=== PATIENT | female | born 1975 | race Caucasian/White ===

== ENCOUNTER 2019-02-25 21:33 | Observation (INO) | payer MEDICARE ==
--- NOTE | 2019-02-25 22:03 | RAD ---
Portable frontal chest radiograph: 02/25/2019 COMPARISON: 03/31/2016 HISTORY: Chest pain FINDINGS: Lungs are clear. Heart and mediastinal contours appear within normal limits. Stable left-si ded Port-A-Cath. IMPRESSION: No acute findings.
[2019-02-25 22:04] LABS: #Basophils 0.1 thou/uL (0.0-0.2); #Eosinphils 0.3 thou/uL (0.0-0.7); #Lymphocytes 4.3 thou/uL (1.20-3.40); #Monocytes 0.9 thou/uL (0.11-0.59); #Neutrophils 8.4 thou/uL (1.40-6.50); %Eosinophils 2.2 % (0.0-10.0); %Lymphocytes 30.7 % (21.0-51.0); %Monocytes 6.3 % (0.0-10.0); %Neutrophils 59.8 % (42.0-75.0); Hemoglobin 12.9 g/dL (12.0-16.0); Mean Corpuscular HGB CONC 34.8 g/dL (32.0-36.0); Platelet Count 330 thou/uL (130-400); RBC Distribution Width 14.2 % (11.5-14.5); Red Blood Cell (RBC) Count 4.04 mill/uL (4.20-5.40)
[2019-02-25 22:17] LABS: ALT (SGPT) 50 U/L (8-55); AST (SGOT) 33 U/L (5-34); Alkaline Phosphatase 124 U/L (40-150); Anion Gap 20 mmol/L (10-20); BUN (Urea Nitrogen) 30 mg/dL (7.0-18.7); Bilirubin, Total 0.4 mg/dL (0.2-1.2); Calc. Creatinine Clearance 0 mL/min (70-130); Calcium 10.5 mg/dL (7.8-10.44); Carbon Dioxide 23 mmol/L (22-29); Chloride 101 mmol/L (98-107); Estimated GFR-MDRD 29; Globulin 3.7 g/dL (2.4-3.5); Glucose 110 mg/dL (70-105); Lipase 40 U/L (8-78); Potassium 3.7 mmol/L (3.5-5.1); Protein, Total 8.7 g/dL (6.0-8.3); Sodium 140 mmol/L (136-145)
[2019-02-26] MEDS ORDERED: Aspirin Chewable 81 MG TAB ONE (00:10)
[2019-02-26] MEDS ORDERED: Ondansetron PF 4 MG/2 ML Vial ONE ×2 (00:10→03:38)
[2019-02-26] MEDS ORDERED: Enoxaparin Sodium 30 MG/0.3 ML SYRINGE ONE (00:15)
[2019-02-26] MEDS ORDERED: Enoxaparin Sodium 80 MG/0.8 ML SYRINGE ONE (00:15)
[2019-02-26 01:20] LABS: Troponin I Less than 0.010 ng/mL (< 0.028)
[2019-02-26] MEDS ORDERED: Ondansetron PF 4 MG/2 ML Vial IVP PRN ×2 (03:46→08:22)
[2019-02-26] MEDS ORDERED: Acetaminophen 325 MG TAB PO PRN (03:46)
[2019-02-26] MEDS ORDERED: Ondansetron ODT 4 MG TAB SL PRN (03:46)
[2019-02-26 04:38] LABS: Troponin I Less than 0.010 ng/mL (< 0.028)
--- NOTE | 2019-02-26 07:26 | ULT ---
BILATERAL LOWER EXTREMITY DOPPLER VENOUS ULTRASOUND: Date: 02/26/19 INDICATION: Elevated D-Dimer and concern for deep venous thrombosis. TECHNIQUE: Hernández scale, color Doppler, and vascular duplex with spectral analysis was performed of the deep venou s structures of the bilateral lower extremities. The common femoral vein, superficial femoral vein, p roximal greater saphenous vein, proximal greater profunda vein, popliteal, and posterior tibial veins were assessed. FINDINGS: Normal compression, flow, and augmentation was seen within the deep venous structures of the bilatera l lower extremities. IMPRESSION: No evidence of deep venous thrombosis within the bilateral lower extremities. POS: BH
[2019-02-26] MEDS ORDERED: HYDROcodone/Acetaminophen 10/325 mg Tablet PO PRN (08:22)
[2019-02-26] MEDS ORDERED: Famotidine 20 MG TAB PO SCH (09:00)
[2019-02-26] MEDS ORDERED: Famotidine 20 MG TAB ONE (09:22)
[2019-02-26] MEDS ORDERED: HYDROcodone/Acetaminophen 10/325 mg Tablet ONE (09:22)
[2019-02-26] MEDS: Famotidine 20 MG TAB PO SCH (09:25)
--- NOTE | 2019-02-26 10:22 | HP ---
CHIEF COMPLAINT: Chest pain, diaphoresis, nausea, and vomiting. HISTORY OF PRESENT ILLNESS: The patient is a pleasant 43-year-old female with somewhat complicated past medical history which includes IgG deficiency, chronic kidney disease stage 3, followed by Dr. Strong at [facility] with numerous recent admissions for acute renal insufficiency at [facility], history of SVT, grade 2 diastolic dysfunction, and incomplete pelvic reconstruction surgery in August 2018 to repair left ureter, who presented to the hospital with complaints of chest pain and diaphoresis. Initially, about 5 days ago, both the patient and her came down what they thought was food poisoning, and the symptoms included vomiting and diarrhea. Her quickly recovered, but the patient continued to feel somewhat poorly. Yesterday morning when she woke up, she felt as if she was back in SVT, and her pulse was 166 by her manual check. She did take 1 of her diltiazem pills, which she uses p.r.n. She did have some vomiting that morning. She did present to [facility] for further treatment, but was told that it would be a 5 to 6-hour wait, so she drove to our facility for further workup and treatment. On her way, she experienced an episode of chest discomfort, which she said felt like an aching or pressure and radiated up to her neck. Associated symptoms included diaphoresis. She did state that she had some intermittent diaphoresis with her nausea and vomiting the day before. Workup at our facility included an EKG, which showed sinus rhythm with a ventricular rate of 95 beats per minute. No ST or T-wave changes. Her D-dimer was elevated at 0.6. Other significant laboratory data included an elevated white blood cell count of 14, 000 and creatinine of 1.91. The patient reports that she has had numerous hospital admissions since January. She believes that she has been admitted 6 times, all of which seem to be related to her renal function. The patient states that she was admitted to [facility] last week with acute renal failure and hypotension. She had a syncopal episode at home and her BP was noted to be in the 70s. She was admitted for IV fluid resuscitation and eventually discharged. She was felt well for a day or 2 until her abdominal symptoms started. The patient states that her creatinine has ranged anywhere from 1.8 to 5.7, but her baseline is right around 1.8 to 2.3. REVIEW OF SYSTEMS: A 12-point review of systems performed and is negative except that stated above. The patient states that she has had no blood in her urine or stool. The patient does state that she had her first erythropoietin ejection last week as well. PAST MEDICAL HISTORY: Significant for schizoaffective disorder, IgG deficiency, asthma, hypertension, SVT, and diastolic dysfunction followed by Dr. Kwok at [facility], chronic kidney disease as mentioned above, and multiple episodes of sepsis and pneumonia. PAST SURGICAL HISTORY: The patient has a somewhat extensive past surgical history, which includes a laminectomy of L5 and S1, which has resulted in chronic back pain and chronic pain syndrome. History of hysterectomy and tubal ligation, cholecystectomy, both right and left tympanic membrane grafts in 2012 and 2015 respectively, Port-A-Cath placed in September of 2012, and most recently a complete pelvic reconstruction performed in August of [address] Cruz at [facility] in [place]. Apparently, complication of the patient's prior bladder sling interrupted flow of the left ureter causing some hydronephrosis. PSYCHIATRIC HISTORY: Positive for schizoaffective disorder, anxiety, and PTSD. SOCIAL HISTORY: The patient lives with her in [place]. She is a retired gas engineer. She has 3 grown daughters and 1 granddaughter. She does not smoke, use any alcohol, or use any illicit drugs. CODE STATUS: The patient is a full code. FAMILY HISTORY: Noncontributory. HOME MEDICATIONS: Effexor 150 mg QD [place] 10/325 mg PRN Q 6 hrs Dilitazem ER 180 mg ER PRN EPO injection Seroquel 600 mg QHS Klonipin 1 mg TID Parafon forte 500 mg PHYSICAL EXAMINATION: VITAL SIGNS: Blood pressure 109/74, pulse of 82, and O2 saturation is 97% on room air. GENERAL: The patient is resting comfortably in bed, in no acute distress. She is moderately obese. HEENT: Head, atraumatic and normocephalic. Extraocular movements intact. NECK: Supple. No lymphadenopathy. No carotid bruits. No JVD. CV: S1 and S2. Regular rate and rhythm. No appreciable murmurs, rubs, or gallops. LUNGS: Regular respiratory rate and pattern. Clear to auscultation bilaterally. ABDOMEN: Positive bowel sounds. Soft, obese, and nontender. No organomegaly. EXTREMITIES: Warm and well perfused. No appreciable edema. +2 DP pulses bilaterally. SKIN: Warm and dry. No rashes. The patient has multiple tattoos visible on her forearm. MUSCULOSKELETAL: No joint effusions or swelling. The patient does have a Port-A-Cath placed in the left upper chest. NEUROLOGIC: Cranial nerves 2 through 12 are intact. The patient is nonfocal. LABORATORY DATA: White blood cell count 14,000, hemoglobin 12.9, hematocrit 37.1, and platelet count is 330. D-dimer is 0.6. Sodium 140, potassium 3.7, chloride 101, carbon dioxide 23, anion gap 20, BUN 30, creatinine 1.91, glucose 110, and calcium 10.5. Liver function enzymes within normal limits. Troponin 0.013, 0.010, and 0.010 respectively and BNP 15. Lipase is 40. ASSESSMENT: 1. Chest pain and intermittent diaphoresis with elevated D-dimer. 2. Nausea and vomiting secondary to viral gastroenteritis, likely contributing to above symptoms as well. 3. History of a subset of IgG deficiency, status post Port-A-Cath in 2011, no current ongoing treatment for this. 4. Chronic kidney disease stage 3, unknown etiology, although history of obstructive uropathy could have contributed. 5. 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 Kwok at [facility]. PLAN: At this time, we will go ahead and move forward with a V/Q scan to rule out PE. The patient does have risk factors for this including multiple hospitalizations as well as sedentary lifestyle. Regarding her gastroenteritis symptoms, we will give IV fluid resuscitation and antiemetics for supportive care. We will also obtain UA to rule out UTI. Further recommendations based on hospital course and results of imaging. Care of this patient has been discussed with Dr. Escobar, who agrees with the above. Job ID: [id number] MTDD
--- NOTE | 2019-02-26 12:01 | NM ---
VENTILATION PERFUSION STUDY: Date: 02/26/19 HISTORY: Chest pain. Pain radiates to patient's jaw and back. FINDINGS: There is normal uptake of radiotracer seen within the lungs bilaterally with focal photopenic defect at the left upper lung zone, likely related to patient's MediPort catheter. There is washout of radio tracer seen on the washout images. No definite ventilation defect is appreciated. Perfusion study demonstrates no evidence of a segmental or subsegmental perfusion defect. There is no evidence of a ventilation\perfusion mismatch. Chest x-ray on 02/25/19 demonstrated that the lungs are clear. IMPRESSION: Low probability for pulmonary embolus. POS: OFF
[2019-02-26] MEDS: Sodium Chloride 0.9% 1,000 ML IV SCH ×2 (12:20→16:42)
[2019-02-26 13:42] LABS: Bilirubin Negative (Negative); Blood, Urine Negative (Negative); Clarity CLEAR (Clear); Glucose, Urine (Dipstick) Negative (Negative); Leukocyte Negative (Negative); Nitrite Negative (Negative); Protein, Urine (Dipstick) Negative (Neg-Trace); Specific Gravity, Urine 1.015 (1.002-1.036); Urobilinogen 0.2 mg/dL (0.2-1.0); pH, Urine 6.5 (5.0-9.0)
[2019-02-26 13:45] LABS: Bacteria/HPF Rare-Few HPF (None Seen); Hyaline Casts/LPF 0-3 HYALINE CAST LPF (0-3 Hyaline); Pathc Cast-AUWi Flag 0.68 (0-2.49); WBC/HPF 0-3 HPF (0-3)
[2019-02-26 14:01] LABS: RBC/HPF 0-3 HPF (0-3)
[2019-02-26] MEDS ORDERED: Ondansetron ODT 4 MG TAB ONE (15:02)
[2019-02-26 15:50] VITALS: BMI 34.6
[2019-02-27] MEDS: Sodium Chloride 0.9% 1,000 ML IV SCH (01:06)
[2019-02-27 07:41] LABS: #Basophils 0.1 thou/uL (0.0-0.2); #Eosinphils 0.5 thou/uL (0.0-0.7); #Lymphocytes 2.4 thou/uL (1.20-3.40); #Monocytes 0.6 thou/uL (0.11-0.59); #Neutrophils 5.9 thou/uL (1.40-6.50); %Basophils 0.9 % (0.0-1.0); %Eosinophils 5.4 % (0.0-10.0); %Lymphocytes 25.2 % (21.0-51.0); %Monocytes 6.3 % (0.0-10.0); %Neutrophils 62.3 % (42.0-75.0); Mean Corpuscular HGB CONC 33.7 g/dL (32.0-36.0); Mean Corpuscular Hemoglobin 31.8 pg (27.0-31.0); Mean Corpuscular Volume 94.5 fL (78.0-98.0); Mean Platelet Volume 6.7 fL (7.4-10.4); Platelet Count 277 thou/uL (130-400); RBC Distribution Width 13.8 % (11.5-14.5); Red Blood Cell (RBC) Count 3.46 mill/uL (4.20-5.40); White Blood Cell (WBC) Count 9.4 thou/uL (4.8-10.8)
[2019-02-27 08:04] LABS: Anion Gap 17 mmol/L (10-20); BUN (Urea Nitrogen) 17 mg/dL (7.0-18.7); Calc. Creatinine Clearance 112 mL/min (70-130); Carbon Dioxide 18 mmol/L (22-29); Chloride 108 mmol/L (98-107); Estimated GFR-MDRD 53; Glucose 96 mg/dL (70-105); Potassium 3.8 mmol/L (3.5-5.1); Sodium 139 mmol/L (136-145)
[2019-02-27] MEDS: Famotidine 20 MG TAB PO SCH (08:40)
[2019-02-27 12:15] VITALS: BP 147/90; TEMP 97.9
--- NOTE | 2019-03-01 12:06 | DIS ---
DATE OF ADMISSION: 02/25/2019 DATE OF DISCHARGE: 02/27/2019 ALLERGIES: CEFDINIR, CEFIXIME, PENICILLIN, SULFA. CHIEF COMPLAINT: Chest pain, diaphoresis, nausea and vomiting. FINAL DIAGNOSES: 1. Nausea, vomiting, abdominal pain radiating into the chest, along with intermittent diaphoresis secondary to viral gastroenteritis, symptoms resolved, PE workup negative 2. History of subset of IgG deficiency, status post Port-A-Cath in 2011. No current ongoing treatment. 3. Acute on chronic stage 3 kidney disease, likely secondary to prerenal cause with underlying dehydration from viral gastroenteritis, creatinine 1.9 on arrival, now 1.13. 4. History of atrioventricular charlotte reentry tachycardia along with grade 2 diastolic function, stable, followed by Dr. Kwok at [facility]. 5. Schizoaffective disorder, stable. 6. Chronic pain syndrome. PROCEDURE PERFORMED: None. LABORATORY RESULTS: White blood cell count on arrival was 14,000, now normal at 9.4, hemoglobin 11, hematocrit 32.7, platelet is 277. D-dimer was 0.6. Sodium 139, potassium 3.8, chloride 108, carbon dioxide 18, BUN 17, creatinine 1.13, GFR 53, glucose 96. AST, ALT, alkaline phosphatase all within normal limits. Lipase normal at 40. Serial troponin was negative x3. Urinalysis was negative for UTI. IMAGING RESULTS: Chest x-ray, no acute findings. Stable left-sided Port-A- Cath. Pulmonary perfusion imaging showed low probability for pulmonary embolus. Venogram showed no evidence of deep vein thrombosis within the bilateral lower extremities. CONSULTATIONS: None. VITAL SIGNS: Blood pressure 136/90, pulse 95, the patient afebrile at 98.6, O2 saturation was 99% on room air. HOSPITAL COURSE: The patient is a pleasant 43-year-old female with somewhat complicated past medical history which includes IgG deficiency, chronic kidney disease stage 3, followed by Dr. Strong at [facility], AVNRT and grade 2 diastolic function, followed by Dr. Kwok, and history of complete pelvic reconstruction surgery in August 2018 to repair left ureter, who presented to the hospital with complaints of chest pain, diaphoresis, and a 2-day history of nausea and vomiting. Initially, about 5 days prior to admission, both the patient and her came down with what they thought was food poisoning, and symptoms included vomiting and diarrhea. Her quickly recovered, but the patient continued to feel somewhat poorly, with continued nausea and vomiting. Day prior to her admission, when she woke up, she felt like she was back in SVT, and her pulse was 166 by manual check. She took one of her diltiazem pills, which she uses p.r.n. for tachycardia. She continued to have some vomiting, and presented to [facility] for further treatment, but was told it would be a 6-hour wait, and so she drove to our facility for further workup and treatment. On her way to the hospital, she did have an episode of chest pain that seemed to radiate up into her neck, along with the diaphoresis, but she also states that she has been having some abdominal cramping associated with that as well secondary to her nausea and vomiting. At our facility, workup included an EKG, which showed a sinus rhythm and a ventricular rate of 95 beats per minute. No ST- or T-wave changes. Her D-dimer was elevated at 0.6, and because of her presenting symptoms, DVT and PE workup were pursued, both which were negative for lower extremity DVT and V/Q scan showed low probability for pulmonary embolism. She was admitted for supportive treatment and IV fluid resuscitation along with antiemetics for her abdominal symptoms. She did have one more episode of vomiting overnight, but this morning feels like she is back to her baseline. She denies any nausea or vomiting. She has tolerated a full diet. She denies any more chest pain or diaphoresis. Her kidney function is much improved. PHYSICAL EXAMINATION: GENERAL: The patient is a moderately obese female, sitting up in bed, resting comfortably. HEENT: Head is atraumatic and normocephalic. Mucous membranes are moist. CV: S1 and S2. Regular rate and rhythm. No appreciable murmurs, rubs, or gallops. NECK: Supple. No lymphadenopathy. No carotid bruits. No JVD. LUNGS: Regular respiratory rate and pattern. Clear to auscultation bilaterally. ABDOMEN: Positive bowel sounds throughout. Soft, nontender. EXTREMITIES: No edema. +2 DP pulses bilaterally. SKIN: Warm and dry. Numerous tattoos present on forearms, no rashes. NEUROLOGIC: Awake and alert, oriented x3, cranial nerves 2 through 12 intact, no focal deficits. CONDITION ON DISCHARGE: Stable. DISCHARGE MEDICATIONS: The patient will continue her home medication regimen which includes; 1. Klonopin 1 mg p.o. t.i.d. 2. Diltiazem ER 180 mg tablet one tablet p.o. p.r.n. 3. Hydrocodone 10/325 one to two tabs p.o. q.4 hours. 4. Metoprolol tartrate 25 mg p.o. b.i.d. 5. Seroquel 600 mg p.o. at bedtime. New medication will be Zofran 4 mg tablet one tablet p.o. p.r.n. nausea. The patient also takes Effexor 150 mg daily. Also takes Parafon Forte 500 mg tab p.r.n. t.i.d. DISCHARGE DISPOSITION: Home. PLAN: The patient will continue p.r.n. Zofran for nausea. She seems to be over her symptomatic viral gastroenteritis. Her presenting symptoms have resolved. She will follow up with her primary care physician, mold making supervisor, and insulation cutter and former as scheduled. She is compliant and routinely follows up. No further recommendations at this time, the patient will be discharged in good position. Care of this patient has been discussed with Dr. Escobar, who agrees with the above. Job ID: [id number] MTDD
== END 2019-02-27 12:34 | disposition home or self-care (01) ==
LOC: ERS 21:33 → ERHOLD 23:50 → 2SW 02-26 15:39
PROVIDERS: ADMIT Hospitalist; ATTEND Hospitalist
DX: A08.4 Viral intestinal infection, unspecified (principal); I12.9 Hypertensive chronic kidney disease with stage 1 through stage 4 chronic kidney disease, or unspecified chronic kidney disease; N18.3 Chronic kidney disease, stage 3 (moderate); N17.9 Acute kidney failure, unspecified; F25.9 Schizoaffective disorder, unspecified; J45.909 Unspecified asthma, uncomplicated; G89.4 Chronic pain syndrome; F41.9 Anxiety disorder, unspecified; F43.10 Post-traumatic stress disorder, unspecified; E66.9 Obesity, unspecified; Z68.34 Body mass index [BMI] 34.0-34.9, adult; Z79.899 Other long term (current) drug therapy; Z88.0 Allergy status to penicillin; Z88.1 Allergy status to other antibiotic agents; Z88.2 Allergy status to sulfonamides
CPT/HCPCS: 71045; 78582; 80048; 80053; 81001; 82550; 83690; 83880; 84484 ×3; 85025 ×2; 85379; 93005; 93970; 96361 ×2; 96372; 96374; 96376 ×2; 97139; 99285; A9540; A9558; G0378 ×2; 36415; J1650; J2405; Q0162